=== PATIENT | male | born 1970 | race Caucasian/White ===

== ENCOUNTER → 2018-04-21 11:28 | Outpatient (CLI) | payer BC ==
[2013-09-03 08:47] VITALS: BMI 30.6
[~2018-04-21 11:28] MED LIST: CLARITIN 10 MG10 MG; DIOVAN HCT 160/1 TA1; KLOR-CON 1010 MEQ; MULTI-DAY VITAM1 TAB; PROTONIX40 MG; ZIAC 5/6.25 MG1 TAB PO
== END | disposition home or self-care (01) ==
LOC: D.RAD 04-20 08:30
DX: M25.512 Pain in left shoulder (principal)